=== PATIENT | female | born 1990 | race Hispanic/Latino ===

== ENCOUNTER 2024-03-22 20:54 | Emergency (ER) | payer MEDICAID ==
[~2024-03-22] VITALS: Ht 154.9 cm; Wt 74.8 kg
--- NOTE | 2024-03-22 21:34 | ERN ---
ED Note History of Present Illness Stated Complaint: 16 WEEKS OB, DECREASE MOVEMENT Chief Complaint: OB<20 weeks gest. Time Seen by MD: 21:27 Dictation: This is a 33-year-old female who is 16 weeks came into the emergency room with concerns for decreased movements. Patient was seen by Dr. Melendez postal sorting officer and was referred to the ER for further evaluation. No history of any nausea vomitings diarrhea. No fevers chills or rigors. No history of any ruptured membranes. No vaginal bleeding or discharge. She alan ed any dysuria hematuria burning micturition or frequency no history of any abdominal pain or pelvic pain. Temperature 99.3 pulse 81 respirations 18 blood pressure 119/86 with a pulse oximetry of 99% Allergies: Coded Allergies: aspirin (Unverified Allergy, Unknown, 05/03/23) Home Meds No Active Prescriptions or Reported Meds Past Medical History Past Medical History: No Pertinent History Surgical History: None Family History: Negative Social History: Negative LMP: Nov 29, 2023 : 3 Para: 2 Aborts: 0 RN Note Reviewed/Agreed w/PFSH: Yes Review of System Dictation As described in the history of present illness Constitutional: Negative for fever,chills, and weight loss Eyes: Negative for injury, pain,redness, and discharge ENT: Negative for injury,pain or swelling Cardiovascular: Negative for chest pain, palpitations, and edema Respiratory: Negative for shortness of breath, cough, and wheezing, Abdomen/GI: Negative for abdominal pain, nausea, vomiting, diarrhea, and constipation Back: Negative for injury and pain : Negative for injury, bleeding and discharge MS/Extremity: Negative for injury and deformity Skin: Negative for rash, and discoloration Neuro: Negative for headache, weakness, numbness, tingling, and seizure Psych: Negative for suicide ideation, homicidal ideation, and hallucinations Initial Vital Sign VS Vital Signs Date Time Temp Pulse Resp B/P (MAP) Pulse Ox O2 Delivery O2 Flow Rate FiO2 03/22/24 21:15 99.3 81 18 119/86 99 Room Air Physical Exam Dictation General: awake, alert, NAD Head/Face: Normocephalic, atraumatic Eyes: PERRL, EOMI, vision at baseline ENT: oral cavity clear, TMs clear, no signs of infection Neck: Trachea midline, supple, no nuchal rigidity Cardiovascular: RRR, normal S1/S2, No MRGs, no JVD Respiratory: CTAB, no respiratory distress, No rales or wheezes Abdomen: Soft, non-tender, non-distended, normal bowel sounds, no guarding or rebound. Gravid uterus-no movements noted Skin: Warm, dry, normal turgor, no rash MS/Extremity: Pulses equal, no cyanosis, neurovascular intact, FROM Neuro: COAx4, GCS 15, strength 5/5, CN 2-12 intact, normal cerebellar exam, normal gait, Psych: Normal behavior, mood, and affect normal Extremities-trace edema without any palpable cords, Homans sign is negative Results (Laboratory/Radiology) Laboratory/Radiology Laboratory Tests Test 03/22/24 22:28 White Blood Count 13.5 K/uL (4.8-10.8) H Red Blood Count 4.34 MIL/uL (4.00-5.50) Hemoglobin 13.3 g/dL (12.0-16.0) Hematocrit 39.2 % (36-48) Mean Corpuscular Volume 90.3 fL (79-99) Mean Corpuscular Hemoglobin 30.6 pg (27.0-33.0) Mean Corpuscular Hemoglobin Concent 33.9 g/dL (32.0-36.0) Red Cell Distribution Width 12.3 % (11.0-15.5) Platelet Count 291 K/uL (130-400) Mean Platelet Volume 10.2 fL (7.5-10.5) Immature Granulocyte % (Auto) 0.3 % (0-1) Neutrophils (%) (Auto) 64.2 % (40.0-77.0) Lymphocytes (%) (Auto) 24.9 % (21.0-51.0) Monocytes (%) (Auto) 8.1 % (3.0-13.0) Eosinophils (%) (Auto) 2.1 % (0.0-8.0) Basophils (%) (Auto) 0.4 % (0.0-5.0) Neutrophils # (Auto) 8.7 K/uL (1.8-7.7) H Lymphocytes # (Auto) 3.4 K/uL (1.0-4.8) Monocytes # (Auto) 1.1 K/uL (0.1-1.0) H Eosinophils # (Auto) 0.28 K/uL (0.00-0.70) Basophils # (Auto) 0.06 K/uL (0.00-0.20) Absolute Immature Granulocyte (auto 0.04 K/uL (0-1) Nucleated Red Blood Cells 0.0 % (0.0-0.19) Sodium Level 138 mmol/L (136-145) Potassium Level 3.4 mmol/L (3.5-5.1) L Chloride Level 102 mmol/L (101-111) Carbon Dioxide Level 28 mmol/L (21-32) Blood Urea Nitrogen 10 mg/dL (7-18) Creatinine 0.6 mg/dL (0.5-1.0) Glomerular Filtration Rate Calc 121 mL/min (>90) Random Glucose 115 mg/dL (70-105) H Total Calcium 9.2 mg/dL (8.5-10.1) Labs Reviewed?: Yes Ultrasound Comment: PATIENT: MARYJANE HOLDEN MR#: [id number] : 1990 SEX: F AGE: 33 LOCATION: [facility] ORDER 16 STATUS: [facility] REPORT#: [id number] SERVICE 14 REASON: decreased movement ORDERING PHYSICIAN: IFTIKHAR ZAMORA PROCEDURE: OB >14 - US OB >14 WEEKS US OB >14 WEEKS HISTORY: Decreased movement COMPARISON: None TECHNIQUE: ultrasound study was performed. FINDINGS: There is single intrauterine gestation with estimated gestational age of 13 weeks. heart rate is 0 beats per minute. The fetus is in variable presentation with transverse lie. weight is estimated to be 75 grams. Amniotic fluid volume is 4 centimeter. The placenta is located right laterally. Increased vascularity is seen posterior to the placenta No evidence of placenta previa is seen. 4 chamber heart is not well visualized. There is no evidence of nuchal cord. anatomy is not well visualized. IMPRESSION: 1. There is single intrauterine gestation with estimated gestational age of 13 weeks. heart activity is absent suspicious for demise. DICTATED BY: DELLA BENTON MD DATE: 03/22/242216 ELECTRONICALLY SIGNED BY: DELLA BENTON MD DATE: 11/18/24 2222 ED Course ED Course Orders Procedure Category Date Status Time Cbc With Differential LAB 03/22/24 Complete 21:15 Basic Metabolic Panel LAB 03/22/24 In Process 21:15 Urinalysis Profile LAB 03/22/24 Logged 21:15 Hcg,Quantitative LAB 03/22/24 In Process 21:15 Us Ob >14 Weeks US 03/22/24 Resulted 21:15 0.9%Nacl 1000ml (Ns PHA 03/22/24 Complete 1000ml) 21:30 Abo/Rh BBK 03/22/24 In Process 22:18 Ceftriaxone 1g Vial PHA 03/22/24 Complete (Rocephine 1g Inj) 23:00 Current Medications Medications (Trade) Dose Ordered Sig/Maria Eugenia Route PRN Reason Start Time Stop Time Status Last Admin Dose Admin Ceftriaxone Sodium (ROCEphine 1G INJ) 1 gm ONCE ONCE IVPB 03/22/24 23:00 03/22/24 23:06 DC Sodium Chloride 1,000 ml @ 0 mls/hr ONCE ONCE IV 03/22/24 21:30 03/22/24 21:31 DC 03/22/24 22:43 Vital Signs Date Time Temp Pulse Resp B/P (MAP) Pulse Ox O2 Delivery O2 Flow Rate FiO2 03/22/24 21:15 99.3 81 18 119/86 99 Room Air We will perform diagnostic labs, advanced imaging and administer medications according to the patient's complaint. Once the results are available, will review and personally interpreted the labs to rule out any acute life- threatening emergency the trach require immediate intervention and treatment. I will then re-evaluate the patient after treatment and diagnostic exams have return to determine whether the patient requires any further testing, can safely be discharged home or need further admission to hospital for additional treatment and evaluation. We will also administer IV fluids while we await the labs and urinalysis. 10:15 p.m. ultrasound of the OB showed an intrauterine gestation but no activity or heart rate suggestive of demise 10:30 p.m. I discussed with Dr. Hunt, postal sorting officer covering for Dr. Melendez and he instructed to discharge her to see Dr. Melendez on Friday at 2:00 p.m.. In view of the low-grade fever and leukocytosis, we will give her a dose of Rocephin to cover UTI. I have updated the patient and spouse about the ultrasound findings and plan of care. Medical Decision Making MDM MDM: Differential diagnosis: demise, threat of , dehydration Rationale: Tests considered and ordered secondary to shared decision making include: Previous outside records reviewed: Old ER visits. Risk of complication and/or morbidity or mortality of patient management: None Medications-Per medication reconciliation Need for hospitalization: Patient does not meet criteria for hospitalization. Need for emergency major/minor surgery: No There are no social concerns with this patient. Prescription drug management Prescriptions will include symptomatic care Patient's prior external medical records from other ER visits were reviewed by me as indicated. Prior testing and results from previous visits were reviewed. Prior tests were taken into account with medical decision making and resource utilization, independent historian/historians were used to obtain complete medical history. I independently interpreted the test that were performed, results were reviewed by me and considered findings on radiology if ordered. Medical management and examination interpretation discussions were had by me with other qualified healthcare professionals as indicated for the patient's care. Problem List Problem List: (1) Decreased movements in second trimester (2) Obstetric problem in patient at less than 20 weeks gestation (3) demise (4) UTI (urinary tract infection) DX & DISP Disposition: Discharge Departure Impression: Primary Impression: Decreased movements in second trimester Additional Impressions: Obstetric problem in patient at less than 20 weeks gestation, demise, UTI (urinary tract infection) Condition: Stable Scripts No Active Prescriptions or Reported Meds Additional Instructions: Patient and the caregiver have been informed of all the diagnostic tests and the imaging conducted during the today's visit to the emergency room and has verbalized understanding of the results I have personally reviewed and interpreted all diagnostic exams performed here in the ER today as well as the vital signs documented by the nursing staff. The patient is now being discharged to home and should follow up with the primary care physician or the specialist as directed by the ER staff. Follow-up with primary care provider in 1 to 2 days. Take medications as directed here in the emergency room. Okay to continue home medications unless otherwise discussed during your visit in the emergency room today. Return to your nearest emergency room if symptoms worsen or if there is no improvement. Call 911 if you need immediate assistance. Take Tylenol or Motrin [id number]-[id number] as needed and if no contraindications are present. Increase oral hydration. A wound culture or urine culture was ordered here in the emergency room department please follow-up with primary care provider and advise them to get repeat ports from our facility. If you had any Fredi wrap/splints that were applied here, please do not remove them until you see your primary care or specialty. She is to follow up with Dr. Melendez postal sorting officer on Friday at 2:00 p.m. for follow-up appointment Referrals: TATUM MELENDEZ Jr., MD (PCP) LEONARDO YOUNG MD Mar 22, 2024 21:34
--- NOTE | 2024-03-22 22:22 | HMCIMG ---
US OB >14 WEEKS HISTORY: Decreased movement COMPARISON: None TECHNIQUE: ultrasound study was performed. FINDINGS: There is single intrauterine gestation with estimated gestational age of 13 weeks. heart rate is 0 beats per minute. The fetus is in variable presentation with transverse lie. weight is estimated to be 75 grams. Amniotic fluid volume is 4 centimeter. The placenta is located right laterally. Increased vascularity is seen posterior to the placenta No evidence of placenta previa is seen. 4 chamber heart is not well visualized. There is no evidence of nuchal cord. anatomy is not well visualized. IMPRESSION: 1. There is single intrauterine gestation with estimated gestational age of 13 weeks. heart activity is absent suspicious for demise.
[2024-03-22 22:34] LABS: BASOPHILS # (AUTO) 0.06 K/uL (0.00-0.20); BASOPHILS % (AUTO) 0.4 % (0.0-5.0); EOSINOPHILS # (AUTO) 0.28 K/uL (0.00-0.70); EOSINOPHILS % (AUTO) 2.1 % (0.0-8.0); HEMATOCRIT 39.2 % (36-48); IMMATURE GRANULOCYTE ABSOLUTE 0.04 K/uL (0-1); LYMPHOCYTES # (AUTO) 3.4 K/uL (1.0-4.8); LYMPHOCYTES % (AUTO) 24.9 % (21.0-51.0); MEAN CORPUSCULAR HEMOGLOBIN 30.6 pg (27.0-33.0); MEAN CORPUSCULAR HGB CONC 33.9 g/dL (32.0-36.0); MEAN CORPUSCULAR VOLUME 90.3 fL (79-99); MONOCYTES # (AUTO) 1.1 K/uL (0.1-1.0); MONOCYTES % (AUTO) 8.1 % (3.0-13.0); NEUTROPHILS # (AUTO) 8.7 K/uL (1.8-7.7); NEUTROPHILS % (AUTO) 64.2 % (40.0-77.0); PLATELET COUNT (AUTO) 291 K/uL (130-400); RED BLOOD CELL COUNT(AUTO) 4.34 MIL/uL (4.00-5.50); RED CELL DISTRIBUTION WIDTH 12.3 % (11.0-15.5); WHITE BLOOD COUNT (AUTO) 13.5 K/uL (4.8-10.8)
[2024-03-22 22:43] LABS: CREATININE 0.6 mg/dL (0.5-1.0); POTASSIUM 3.4 mmol/L (3.5-5.1)
[2024-03-22] MEDS: 0.9%NACL 1000ML 1,000 ML IV ONE (22:43)
[2024-03-22] MEDS: cefTRIAXone 1G VIAL IVPB ONE (23:11)
[2024-03-23 00:06] VITALS: BP 117/82; PULSE 76; RESP 16; TEMP 98.8; O2SAT 99
[2024-03-24] MEDS ORDERED: PREN1TAB80 PO (21:08)
[2024-03-25] MEDS ORDERED: CEPH250C2 PO (15:30)
[2024-03-25] MEDS ORDERED: IBUP-1673 PO (15:31)
== END 2024-03-23 00:07 | disposition home or self-care (01) ==
LOC: EDH 20:54
DX: O36.8120 Decreased fetal movements, second trimester, not applicable or unspecified (principal); O23.42 Unspecified infection of urinary tract in pregnancy, second trimester; N39.0 Urinary tract infection, site not specified; O26.891 Other specified pregnancy related conditions, first trimester; R10.2 Pelvic and perineal pain; Z3A.16 16 weeks gestation of pregnancy; Z88.6 Allergy status to analgesic agent
CPT/HCPCS: 99285; 96365; 76805; 80048; 84702; 85025; 86900; 86901; 36415; J7030; J0696